=== PATIENT | female | born 1970 | race Caucasian/White ===

== ENCOUNTER → 2016-08-01 | Outpatient (CLI) | payer OTHER ==
[~2016-08-01] MED LIST: ADAL1KIT INJ; FOLI1TAB7 PO; MECL1TAB42 PO; MTH25 PO; PRLSR20 PO
[2016-08-01 08:17] LABS: BASO % 0.3 %; BASO ABS # 0.03 K/uL (0-0.2); EOS % 2.6 %; HEMATOCRIT 38.1 % (37-47); IG% 0.6 %; LYMPH % 22.6 %; LYMPH ABS # 2.68 K/uL (1.2-3.4); MEAN CELL VOLUME 94.1 fL (80-100); MEAN CORPUSCULAR HEMOGLOBIN 30.9 pg (25-34); MEAN CORPUSCULAR HGB CONC 32.8 g/dl (32-36); MEAN PLATELET VOLUME 8.8 fL (7.4-10.4); MONO % 6.5 %; NEUT % 67.4 %; PLATELET COUNT 451 K/uL (130-400); RED BLOOD COUNT 4.05 M/uL (4.2-5.4); WHITE BLOOD COUNT 11.87 K/uL (4.8-10.8)
[2016-08-01 08:48] LABS: ALB/GLOB RATIO 0.9 (0.9-2); ALKALINE PHOSPHATASE 68 U/L (45-117); ALT/SGPT 30 U/L (12-78); AST/SGOT 17 U/L (15-37); BLOOD UREA NITROGEN 9 mg/dl (7-18); BUN/CREATININE RATIO 11.6 (10-20); CALCIUM 8.8 mg/dl (8.5-10.1); CARBON DIOXIDE 25 mmol/L (21-32); CHLORIDE 105 mmol/L (98-107); CREATININE 0.73 mg/dl (0.60-1.20); GLUCOSE 101 mg/dl (70-99); POTASSIUM 4.6 mmol/L (3.5-5.1); SODIUM 139 mmol/L (136-145)
[2016-08-01 08:52] LABS: COMPLETE YES
== END | disposition home or self-care (01) ==
LOC: C.LAB 11:13
PROVIDERS: ATTEND Internal Medicine
DX: Z79.899 Other long term (current) drug therapy (principal)

== ENCOUNTER → 2016-12-14 | Outpatient (CLI) | payer OTHER ==
--- NOTE | 2016-12-14 15:46 | DIAGNOSTIC IMAGING REPORT ---
LUMBAR SPINE 2 OR 3 VIEWS CLINICAL HISTORY: M05.79 Z79.899 pain COMPARISON STUDY: 03/12/2014 FINDINGS: Normal alignment of the vertebral bodies. Intervertebral this are generally well preserved. There is minimal degenerative change of vertebral endplates. IMPRESSION: Minimal degenerative change. No acute process. No change from the prior exam. Electronically signed by: Milind Leslie M.D. 12/14/2016 3:44 PM Dictated Date/Time: 12/14/2016 3:43 PM
== END | disposition home or self-care (01) ==
LOC: C.RAD 15:20
PROVIDERS: ATTEND Internal Medicine
DX: Z51.81 Encounter for therapeutic drug level monitoring (principal); Z79.899 Other long term (current) drug therapy; M05.79 Rheumatoid arthritis with rheumatoid factor of multiple sites without organ or systems involvement

== ENCOUNTER → 2017-04-13 | Outpatient (CLI) | payer OTHER ==
[2017-04-13 07:54] LABS: BASO % 0.3 %; BASO ABS # 0.04 K/uL (0-0.2); COMPLETE YES; EOS % 2.9 %; IG% 0.4 %; LYMPH ABS # 2.91 K/uL (1.2-3.4); MEAN CELL VOLUME 93.9 fL (80-100); MEAN CORPUSCULAR HEMOGLOBIN 29.7 pg (25-34); MEAN CORPUSCULAR HGB CONC 31.6 g/dl (32-36); MEAN PLATELET VOLUME 9.5 fL (7.4-10.4); MONO % 8.2 %; NEUT % 65.2 %; PLATELET COUNT 413 K/uL (130-400); RED BLOOD COUNT 4.58 M/uL (4.2-5.4); WHITE BLOOD COUNT 12.63 K/uL (4.8-10.8)
[2017-04-13 08:02] LABS: ALT/SGPT 31 U/L (12-78); AST/SGOT 28 U/L (15-37); BLOOD UREA NITROGEN 8 mg/dl (7-18); BUN/CREATININE RATIO 9.9 (10-20); CALCIUM 9.9 mg/dl (8.5-10.1); CARBON DIOXIDE 30 mmol/L (21-32); CHLORIDE 105 mmol/L (98-107); CREATININE 0.76 mg/dl (0.60-1.20); GLUCOSE 102 mg/dl (70-99); POTASSIUM 4.4 mmol/L (3.5-5.1); SODIUM 140 mmol/L (136-145)
[2017-04-13 08:05] LABS: ALKALINE PHOSPHATASE 69 U/L (45-117)
== END | disposition home or self-care (01) ==
LOC: C.LABSPEC 07:38
PROVIDERS: ATTEND Internal Medicine
DX: M05.79 Rheumatoid arthritis with rheumatoid factor of multiple sites without organ or systems involvement (principal)

== ENCOUNTER → 2017-09-07 | Outpatient (CLI) | payer OTHER ==
[~2017-09-07] MED LIST changes: -FOLI1TAB7 PO; +FOLI1TAB8 PO; +GADAVIST IV PRN
--- NOTE | 2017-09-07 16:37 | DIAGNOSTIC IMAGING REPORT ---
MRI OF THE BRAIN COMBO INTERNAL AUDITORY CANAL PROTOCOL CLINICAL HISTORY: Dizziness. COMPARISON STUDY: CT of the brain dated 09/20/1714. TECHNIQUE: MRI of the brain was performed utilizing various T1 and T2-weighted sequences in the axial, sagittal, and coronal planes. Contrast-enhanced sequences were acquired following the administration of 10 cc of Gadavist. Additional high-resolution imaging was performed through the skull base both pre and post contrast to further assess the internal auditory canals. FINDINGS: Brain parenchyma: A tiny focus of T2 signal abnormality within the right-sided periventricular white matter likely represents minimal recurrent hepatic change. This is of doubtful significance as an isolated defining. The brain parenchyma is otherwise normal in appearance. There is no hemorrhage or mass effect. There is no restricted diffusion to suggest acute ischemia. No enhancing mass lesion is identified on the postcontrast images. Cotter-white matter differentiation is preserved. No extra-axial fluid collection is seen. The cerebellar tonsils are normal in configuration. Ventricles, sulci, and cisterns: Normal in configuration. Internal auditory canals: No mass lesion is identified in the cerebellopontine angle bilaterally. No mass lesion or abnormal enhancement is seen along the course of the internal auditory canals. The middle ear structures are normal as visualized. Pituitary and sella: Unremarkable. Intracranial vasculature: Normal flow voids are maintained at the skull base. Orbits: The bony orbits are grossly intact. Orbital contents are normal in appearance. Sinuses and mastoids: Clear. Calvarium: Unremarkable. Cervical cord: Partially visualized cervical spinal cord is normal in morphology and signal intensity. IMPRESSION: 1. No acute intracranial abnormality. 2. Unremarkable MRI assessment of the internal auditory canals. Electronically signed by: Bonilla Reynaga M.D. 09/07/2017 4:35 PM Dictated Date/Time: 09/07/2017 4:30 PM
== END | disposition home or self-care (01) ==
LOC: C.MRI 15:35
PROVIDERS: ATTEND Nurse Practitioner
DX: H93.A1 Pulsatile tinnitus, right ear (principal); H91.91 Unspecified hearing loss, right ear

== ENCOUNTER → 2017-10-26 | Outpatient (CLI) | payer OTHER ==
[~2017-10-26] MED LIST changes: -GADAVIST IV PRN
--- NOTE | 2017-10-26 16:01 | DIAGNOSTIC IMAGING REPORT ---
Brain MRA HISTORY: thumping sound in right ear TECHNIQUE: 3-D [id number] MRA of the brain was performed without contrast. COMPARISON STUDY: Brain MRI 09/07/2017. FINDINGS: Visualized intracranial internal carotid arteries, distal vertebral arteries, and basilar artery are widely patent. There is no significant stenosis, occlusion, or aneurysm seen within the bilateral ACAs, MCAs, or bindery assistant. IMPRESSION: No significant stenosis, occlusion, or aneurysm within the ekl[place] of Gutierrez. Electronically signed by: Jono De Leon M.D. 10/26/2017 4:00 PM Dictated Date/Time: 10/26/2017 3:56 PM
== END | disposition home or self-care (01) ==
LOC: C.MRI 14:55
PROVIDERS: ATTEND Physician Assistant
DX: H93.A1 Pulsatile tinnitus, right ear (principal); H91.91 Unspecified hearing loss, right ear